=== PATIENT | male | born 1950 | race Caucasian/White ===

== ENCOUNTER → 2021-03-20 | Outpatient (CLI) | payer OTHER, MEDICARE | LOC: HYPER 07:31 | PROVIDERS: ATTEND Specialist | DX: L02.32 Furuncle of buttock (principal); K60.3 Anal fistula; E11.628 Type 2 diabetes mellitus with other skin complications; M13.80 Other specified arthritis, unspecified site; Z79.82 Long term (current) use of aspirin; Z79.84 Long term (current) use of oral hypoglycemic drugs ==